=== PATIENT | female | born 1990 | race Hispanic/Latino ===

== ENCOUNTER 2024-09-19 06:34 | Emergency (ER) | payer SELFPAY ==
[~2024-09-19] VITALS: Ht 167.6 cm; Wt 133.8 kg
--- NOTE | 2024-09-19 07:42 | ERN ---
General Chief Complaint: Other Problems Stated Complaint: NUMBNESS TO FINGERS, LEFT HAND, WHEN LAYING DOWN Time Seen by MD: 08:11 Source: patient History of Present Illness Initial Comments Patient is a 34-year-old male with no pertinent past medical history who presented to the emergency room with a 1 day history of pain and numbness to the left upper extremity. Patient states the pain was sudden in onset, involving all 5 fingers and Palm on the right. Rates the pain as a 7/10, intermittent in frequency and burning in character. Patient states that pain is made worse by repetitive motion and laying down and improves when she rests or shakes her hands. Denies any swelling, discoloration or skin changes. Denies any recent trauma repetitive strain, neck pain or recent injuries. Patient states that she smokes cigarettes and uses marijuana. Last use was yesterday. Allergies: Coded Allergies: No Known Allergies (Unverified Allergy, Unknown, 09/19/24) Past Medical History Past Medical History: No Pertinent History Past Surgical History: None Female( History) LMP: Aug 30, 2024 ROS Dictation Constitutional: No appetite loss, No fevers, chills , No night sweats, No weakness, fatigue Eye: No vision change, No redness, pain or discharge ENT: No hearing loss, ear pain or discharge, No nose bleeds, No sore throat, Neck: No swelling. pain or stiffness Respiratory: No cough, shortness of breath, wheezing Cardiovascular: No chest pain,, palpitations, dyspnea, No edema Gastrointestinal: No abdominal pain, No nausea, vomiting, No diarrhea, constipation Genitourinary: No painful urination, No blood in urine, No urinary incontinence, No frequency or urgency Musculoskeletal: No joint pain, muscle pain, swelling, LUE pain and numbness Neurological: No numbness, tingling, No weakness, tremors or seizures Psychiatric: : No depression, No anxiety, No sleep disturbance, No Memory changes Lymphatic: No easy bruising, No bleeding tendencies , No swollen lymph nodes A 13-point Review of Systems was assessed, all of which are negative except for HPI or as indicated above. Physical Exam Physical Exam Dictation General: Alert & Oriented, No acute distress. EENT: No conjunctival redness or discharge noted Tympanic membranes are clear, Normal hearing, Oral mucosa is moist, No pharyngeal erythema, No nasal discharge, No oral lesions. Neck: Non-tender, No jugular vein distention, No lymphadenopathy, No thyromegaly, Supple. Respiratory: Lungs are clear to auscultation, Respirations are non-labored, Breath sounds are equal, No chest wall tenderness, _. Cardiovascular: Normal rate, Normal rhythm, No murmur, Good pulses equal in all extremities, Normal peripheral perfusion, No edema. Gastrointestinal: Soft, Non-tender, Non-distended, Normal bowel sounds, No organomegaly, _. Musculoskeletal: LUE normal range of motion, Normal strength, No tenderness, No swelling, No deformity, Integumentary: Warm, Dry, [place], Intact, No pallor, No rash. Neurologic: Alert, Oriented x4, Normal sensory, No focal defects Psychiatric: Cooperative, Appropriate mood & affect, Normal judgement, Non- suicidal. MDM Potential differential diagnoses include: *Vasospastic Disorder *Intermittent nerve impingement * Carpal tunnel syndrome * Assessment: Given the patient's smoking and marijuana use prior to the onset of the symptoms, I would consider vasospastic disorder since smoking can contribute to vasoconstriction which may cause episodic numbness and pain . I was also considering carpal tunnel syndrome , however since pain involves all fingers , this is less likely. I will order Ketorolac 30mg IM for adequate pain management. I will re-evaluate the patient after treatment to determine whether they require further testing, can be safely discharged home, or need admission for further treatment and evaluation. Given the social determinants of health affecting care, including literacy, access to medical care, prescription drug management, and [id number] drugs, I will ensure that treatment plans are tailored accordingly. Revaluation : Patient is alert and oriented. States she feels a lot better . Disposition: Will discharge patient at this time with prescription of Meloxicam PO and instructions to follow up with PCP for further evaluation and treatment. Attestation: Patient's case was discussed with the ER MD. Reviewed the documentation, medical decision making and treatment plan. Agrees with the findings and plan of care. ED Course Orders Procedure Category Date Status Time Ketorolac PHA 09/19/24 Complete Tromethamine 30mg/Ml 07:30 *General Dc DS 09/19/24 Transmitted Instructions 08:47 Current Medications Medications (Trade) Dose Ordered Sig/[place] Route PRN Reason Start Time Stop Time Status Last Admin Dose Admin Ketorolac Tromethamine (toRADol) 30 mg ONCE ONCE IM 2/11/25 07:30 09/19/24 07:31 DC 09/19/24 07:54 Vital Signs Date Time Temp Pulse Resp B/P (MAP) Pulse Ox O2 Delivery O2 Flow Rate FiO2 09/19/24 08:04 98.2 83 17 117/57 100 Room Air* 0 21 09/19/24 06:37 99.0 83 18 133/83 99 Room Air DX & DISP Disposition: Discharge Departure Impression: Primary Impression: Impingement of left ulnar nerve Additional Impression: Vasospasm Condition: Stable Scripts Meloxicam (Meloxicam) 15 Mg Tablet 1 TAB PO DAILY for 30 Days, #30 TAB 0 Refills Prov: MARTHA HARPER MD 09/19/24 Additional Instructions: Discharge Instructions: *Follow up with your primary care physician in 2 - 3 days after discharge. *Continue all medications as prescribed. Do not discontinue or change dosages without consulting your PCP. *Gradually resume normal activities as tolerated. *Continue a balanced diet . Reduce salt intake to help manage BP. *Seek immediate medical attention if you experience chest pain, SOB or severe headache. *Smoking cessation is strongly advised. Resources for quitting smoking are available upon request. Referrals: NONE (PCP) MARTHA HARPER MD Sep 19, 2024 07:42
[2024-09-19] MEDS: ketOROlac 30MG VIAL (30MG/ML) IM ONE (07:54)
[2024-09-19] MEDS ORDERED: MELO-108 PO (09:08)
[2024-09-19 09:12] VITALS: BP 133/88; PULSE 85; RESP 16; TEMP 98.4; O2SAT 99
== END 2024-09-19 09:03 | disposition home or self-care (01) ==
LOC: EDH 06:34
DX: M25.832 Other specified joint disorders, left wrist (principal); I73.9 Peripheral vascular disease, unspecified; F17.210 Nicotine dependence, cigarettes, uncomplicated
CPT/HCPCS: 99283; 96372; J1885